=== PATIENT | male | born 2000 | race Hispanic/Latino ===

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

== ENCOUNTER 2022-04-04 22:52 | Emergency (ER) | payer OTHER, SELFPAY ==
[~2022-04-04] VITALS: Ht 170.2 cm; Wt 87.4 kg
[~2022-04-04 22:52] MED LIST: CYCL-707 PO; IBUP-1022 PO
[2022-04-05] MEDS ORDERED: PERCOCET 5MG/325MG TAB PO ONE (02:30)
[2022-04-05 03:15] LABS: BASO # 0.1 10^3/uL (0.0-0.2); BASO % 0.8 % (0.0-1.0); EOS # 0.6 10^3/uL (0.0-0.5); EOS % 5.3 % (0.0-3.0); HEMATOCRIT 42.2 % (42.0-52.0); HEMOGLOBIN 13.8 g/dl (13.5-17.5); LYMPH % 28.1 % (24.0-44.0); MEAN CORPUSCULAR HEMOGLOBIN 28.2 pg (27.0-33.0); MEAN CORPUSCULAR HGB CONC 32.7 g/dl (32.0-36.5); MEAN CORPUSCULAR VOLUME 86.1 fl (80.0-96.0); MONO % 9.5 % (2.0-8.0); NEUTROPHILS # 5.9 10^3/uL (1.5-8.5); NEUTROPHILS % 55.7 % (36.0-66.0); PLATELET COUNT, AUTOMATED 260 10^3/uL (150-450); WHITE BLOOD COUNT 10.6 10^3/uL (4.0-10.0)
[2022-04-05] MEDS ORDERED: ISOVUE-370 76% 100ML VIAL As Ordered ONE (03:31)
[2022-04-05] MEDS ORDERED: ACETAMINOPHEN 325 MG TAB PO ONE (03:35)
[2022-04-05 07:35] VITALS: BP 129/70
[2022-04-05] MEDS ORDERED: AMOX875T2 PO (07:44)
== END 2022-04-05 07:48 | disposition home or self-care (01) ==
LOC: M ED 22:52
DX: L04.0 Acute lymphadenitis of face, head and neck (principal); K02.9 Dental caries, unspecified
CPT/HCPCS: 36415; 70491; 80047; 85025; 99284; Q9967

== ENCOUNTER → 2023-11-23 | Outpatient (CLI) | payer OTHER ==
[~2023-11-23] MED LIST changes: +AMOX875T2 PO
== END ==
LOC: M PLAIMG 06:39
PROVIDERS: ATTEND Physician Assistant Surgical
DX: S80.02XA Contusion of left knee, initial encounter (principal); X58.XXXA Exposure to other specified factors, initial encounter; Y92.9 Unspecified place or not applicable